=== PATIENT | female | born 1970 | race African-American/Black ===

== ENCOUNTER 2024-05-16 22:21 | Emergency (ER) | payer OTHER ==
[~2024-05-16] VITALS: Ht 167.6 cm; Wt 82.0 kg
[2024-05-16 22:31] VITALS: O2SAT 100
[2024-05-16 22:43] VITALS: BP 169/100; PULSE 77; RESP 18; TEMP 36.7; O2SAT 99
== END 2024-05-16 23:20 | disposition home or self-care (01) ==
LOC: ER 22:21
DX: R10.9 Unspecified abdominal pain (principal); E11.9 Type 2 diabetes mellitus without complications; Y08.89XA Assault by other specified means, initial encounter; Y93.89 Activity, other specified; Y92.89 Other specified places as the place of occurrence of the external cause; Y99.8 Other external cause status
CPT/HCPCS: 99281